=== PATIENT | male | born 1945 | race African-American/Black ===

== ENCOUNTER 2022-07-02 08:01 | Outpatient (CLI) | payer MEDICARE, SELFPAY ==
--- NOTE | ~2022-07-02 | NM_ITS ---
EXAMINATION: NM bone scan whole body DATE: 07/02/2022 11:56 INDICATION: Prostate cancer TECHNIQUE: Daily 6.7 mCi Tc-99m HDP was administered intravenously. Delayed whole-body scintigrams w ere obtained. COMPARISON: There are no relevant imaging studies at our institution. FINDINGS: Atypical focus of moderate increased uptake in the occiput suspicious for metastatic disease. Osteope nichelle defects at both knees suggesting total knee arthroplasties with normal mild linear uptake underly ing the tibial tray both medially and laterally on the left and laterally on the right. There is more prominent increased uptake underlying the medial tibial tray on the left which particularly if there is plaster chronic raises concern for loosening. Mild likely degenerative joint centered uptake at t he bilateral acromioclavicular and sternoclavicular joints and multiple joints of the bilateral hands and feet. Mild uptake at the lower cervical spine also typical location for degenerative disc diseas e. Additional small foci of mild but more suspiciously located uptake at the caudal aspect of the rig ht sacroiliac joint and in the region of the right maxilla. Mild uptake at the distal left upper arm likely related to small amount of soft tissue extravasation at the site of the left antecubital injec tion. IMPRESSION: 1. Focus of moderate increased uptake suspicious for metastatic disease at the occiput along with a c ouple additional more subtle but still suspicious small foci of uptake at the inferior right sacroili ac joint and at the right maxilla. Recommend correlation with head CT. 2. Mildly prominent linear increased uptake underlying the medial tibial tray of a right total knee a rthroplasty could be seen with a relatively recently placed arthroplasty but is otherwise concerning for loosening. Consider correlation with right knee radiographs. Reviewed, dictated and finalized at location B. TS TRAFFIC CONTROLLER IMPRESSION: 1. Focus of moderate increased uptake suspicious for metastatic disease at the occiput along with a couple additional more subtle but still suspicious small f oci of uptake at the inferior right sacroiliac joint and at the right maxilla. Recommend correlation with head CT. 2. Mildly prominent linear increased uptake underlying the medial tibial tray o f a right total knee arthroplasty could be seen with a relatively recently plac ed arthroplasty but is otherwise concerning for loosening. Consider correlation with right knee radiographs.
== END 2022-07-02 08:02 | disposition home or self-care (01) ==
PROVIDERS: PCP Family Medicine; Visit Provider Urology
DX: C61 Malignant neoplasm of prostate (principal)
CPT/HCPCS: 78306; A9503

== ENCOUNTER 2022-07-19 12:41 | Outpatient (CLI) | payer MEDICARE, SELFPAY ==
--- NOTE | ~2022-07-19 | PE_ITS ---
EXAMINATION: PET_PETPSMAST_PT DATE: 07/19/2022 15:38 INDICATION: Prostate cancer. TECHNIQUE: 9.471 mCi of piflufolastat F-18 was administered intravenously. Low dose computed tomograp hy (CT) images were acquired from the base of the brain to the proximal thighs for attenuation correc tion and anatomic localization. Automated exposure control was employed. Dose-length product (DLP) wa s 978 mGy-cm. Positron emission tomography (PET) images were acquired in the same distribution. COMPARISON: Bone scan 07/02/2022 FINDINGS: Head/neck: There are no pathologically enlarged lymph nodes. Chest: There is mild emphysema. No pleural effusion. The heart size is normal. No pericardial effusio n. There are no pathologically enlarged lymph nodes. There are two foci of increased activity in medi al right seventh rib with maximum SUV of 4.[address] correlate. There is a 14 mm nonaggre ssive lytic lesion in medial right seventh rib without increased activity, likely benign. Abdomen/pelvis/proximal thighs: The liver, spleen, gallbladder, pancreas, and adrenal glands are norm al. There are cysts in the kidneys measuring up to 2.4 cm in the right. There is severe right hydrone phrosis. There is an 8 mm stone in proximal right ureter. The prostate is moderately enlarged. There is increased activity in the prostate bilaterally, left worse than right, with maximum SUV of 20.2. T here are no dilated loops of bowel. The appendix is normal. There are no pathologically enlarged lymp h nodes. There is no free intraperitoneal fluid. There is increased activity in right L5 transverse p rocess with maximum SUV of 3.[address] correlate. There is increased activity in lumbar s pine correlating with severe spondylosis by CT. There is increased activity at the sacroiliac joints correlating with osteoarthritis by CT. IMPRESSION: 1. Mildly enlarged prostate with increased activity, consistent with primary malignancy. 2. Mildly increased activity in right 7th rib and right L5 transverse process without abnormal CT cor relate. These findings are indeterminate for malignancy. Reviewed, dictated and finalized at location A. HALMIC MEDICAL ASSISTANT IMPRESSION: 1. Mildly enlarged prostate with increased activity, consistent with primary ma lignancy. 2. Mildly increased activity in right 7th rib and right L5 transverse process w ithout abnormal CT correlate. These findings are indeterminate for malignancy.
== END 2022-07-19 12:42 | disposition home or self-care (01) ==
PROVIDERS: PCP Family Medicine; Visit Provider Urology
DX: C61 Malignant neoplasm of prostate (principal); R93.7 Abnormal findings on diagnostic imaging of other parts of musculoskeletal system; M47.816 Spondylosis without myelopathy or radiculopathy, lumbar region
CPT/HCPCS: 78815; A9595

== ENCOUNTER 2022-07-30 15:13 | Outpatient (CLI) | payer MEDICARE, SELFPAY ==
--- NOTE | ~2022-07-30 | CT_ITS ---
EXAMINATION: CT abdomen pelvis wo con DATE: 07/30/2022 15:43 INDICATION: Right ureteral stone. TECHNIQUE: Computed tomography (CT) of the abdomen and pelvis was performed without intravenous contr ast. Automated exposure control and iterative reconstruction technique were employed. The dose-length product was 874.65 mGy-cm. COMPARISON: Abdomen radiographs 07/30/2022 FINDINGS: The visualized portions of the lung bases demonstrate mild emphysema and mild atelectasis. No pleural effusion. The heart size is normal. There are coronary artery calcifications. There is a s mall pericardial effusion. The liver is normal. There are gallstones in the gallbladder, which is nor mal in size. The spleen, pancreas, and adrenal glands are normal. There are cysts in the kidneys krista uring up to 9.0 cm on the right. There is a 3 mm stone in left kidney. There is severe right hydronep hrosis and hydroureter. There is an 8 mm stone in proximal right ureter. The prostate is severely enl arged. There are no dilated loops of bowel. The appendix is normal. There are no pathologically enlar ged lymph nodes. There is no free intraperitoneal fluid. There is moderate thoracic spondylosis and s evere lumbar spondylosis. There is mild chronic anterior wedging of multiple vertebral bodies. IMPRESSION: 1. 8 mm stone in proximal right ureter with severe right hydronephrosis and hydroureter. Reviewed, dictated and finalized at location A. DSMAN IMPRESSION: 1. 8 mm stone in proximal right ureter with severe right hydronephrosis and hyd roureter.
--- NOTE | ~2022-07-30 | XR_ITS ---
XR abdomen/kub 1V 07/30/2022 15:51 Indication: Right ureteral stone Procedure: KUB Comparison: No prior studies Findings: There is a right ureteral stone at the L3 level measuring 8 mm. Bowel gas pattern is nonobs tructive. Moderate-severe lumbar spondylosis. Nonobstructive bowel gas. Impression: 1: Right proximal ureteral stone measuring 8 mm at the L3 level. Reviewed, dictated and finalized at location B. GE FISHERMAN Impression: 1: Right proximal ureteral stone measuring 8 mm at the L3 level.
== END 2022-07-30 15:14 | disposition home or self-care (01) ==
PROVIDERS: PCP Family Medicine; Visit Provider Urology
DX: N20.1 Calculus of ureter (principal)
CPT/HCPCS: 74018; 74176

== ENCOUNTER 2022-08-27 13:23 | Outpatient (CLI) | payer MEDICARE, SELFPAY ==
[2022-08-27 15:49] LABS: Hematocrit 40.2 % (42.0-52.0); Hemoglobin 12.2 g/dL (14.0-18.0)
[2022-08-27 16:00] LABS: INR 1.1; Prothrombin Time 13.6 Seconds (11.1-14.7)
[2022-08-27 16:02] LABS: Anion Gap 6 mmol/L (8-16); Blood Urea Nitrogen 24 mg/dL (9-20); Calcium 10.7 mg/dL (8.4-10.2); Carbon Dioxide 31 mmol/L (22-30); Chloride 104 mmol/L (98-107); Estimated Glomerular Filt Rate 55; Glucose 83 mg/dL (65-110); Sodium 141 mmol/L (137-145)
[2022-08-27 16:14] LABS: Potassium 3.7 mmol/L (3.4-5.0)
== END 2022-08-27 13:24 | disposition home or self-care (01) ==
PROVIDERS: Anesthesiology; PCP Family Medicine; Visit Provider Urology
DX: Z01.818 Encounter for other preprocedural examination (principal); D64.9 Anemia, unspecified; Z51.81 Encounter for therapeutic drug level monitoring; N20.1 Calculus of ureter
CPT/HCPCS: 36415; 80048; 85014; 85018; 85610; 85730; 87086

== ENCOUNTER 2022-09-03 01:47 | Day surgery (SDC) | payer MEDICARE, SELFPAY ==
[2022-08-20 13:17] VITALS: BMI 39.0
--- NOTE | 2022-08-20 13:50 | PC.NURSE ---
Report to the Outpatient Waiting Room, entrance under the green pavilion located off [facility], at time __6:00AM on date __09/03/22 . Planned Procedure Time: __7:30AM . Time changes happen often and if your time is changed the preop area will call you the afternoon before. - You and your visitor will be asked to self-screen and do not enter if you have any COVID symptoms. - Only one visitor is requested with a max of two and NO children visitors are allowed at this time. - The patient visitor may be requested to leave or wait in car when not with patient due to distancing restrictions. - A mask is optional within the hospital at this time. Patients may have clear liquids (water, carbonated beverages, clear teas, apple juice) until 3 hours prior to surgery with a maximum of 20 ounces. - No food from midnight until time of surgery Take the following medications with a SIP of water the morning of surgery: ___VERAPAMIL DO NOT STOP ANY OF YOUR OTHER PRESCRIPTION MEDICATIONS PRIOR TO SURGERY ?EXCEPT THE FOLLOWING Medications to discontinue per physician ___HOLD ASPIRIN 7 DAYS PRE-OP Date to take last dose___08/27/22 Please no make-up, nail georgian, hairspray, perfume, deodorant, or body powder the day of surgery. No jewelry (including any body piercings) or valuables the day of surgery, leave them at home. Please take a shower or bath the night before, or the morning of, surgery with an antibacterial soap. Wear comfortable, loose fitting clothing. Children are encouraged to wear pajamas. - Jewelry must be removed prior to entering the operating room. Rings and piercings that are not removed may be cut off. - The hospital will not accept responsibility for valuables. - Please leave all valuables, including medications, at home the day of surgery. If you are going home after surgery, a licensed food mobile driver must drive you home. - NO public transportation without another adult if you receive anesthesia. - We recommend that an adult stay with you for 24 hours following discharge. - We also recommend that you do not drive, make important decision, drink alcoholic beverages, or take any drugs that were not prescribed by your health care provider for at least 24 hours after your discharge time.. Follow any additional instructions given to you from your surgeon. If you or anyone in your household have experienced Covid symptoms in the past week, please notify your surgeon or the nurse liaison at the phone number below for possible testing. Telephone instructions given to ___PATIENT and asked if any additional questions and then verbalized understanding. Patient advised to call surgeon office or pre surgery nurse liaison [phone] if any additional questions.
[2022-09-03] VITALS (8 sets, daily range): BP systolic 124–160; BP diastolic 74–104; PULSE 64–72; RESP 14–20; TEMP 36.1–36.5; O2SAT 99–100
--- NOTE | ~2022-09-03 | CT_ITS ---
Non-contrast CT scan of the Abdomen and Pelvis Clinical indication: Right kidney stone Technique: 2.5 mm axial scans were obtained through the abdomen and pelvis without intravenous or or al contrast. Dose reduction technique was used on this scan by utilizing automated exposure control a nd iterative reconstruction technique. The dose-length product (DLP) was 778.79 mGy-cm. COMPARISON: 07/30/2022 Findings: Images through the lung bases reveal no abnormalities. There is a 6 mm stone versus 2 adjacent stones in the proximal right ureter, resulting in mild to mod erate right hydroureteronephrosis. Bilateral renal cysts are present. No left ureteral stone or left hydronephrosis. The liver, spleen, and adrenals appear normal. Probable tiny gallstones present. Probable lipoma with in the uncinate process of the pancreas. There are atherosclerotic calcifications of the aorta. There is no evidence of bowel obstruction. Images through the pelvis were performed. There is no evidence of ascites or lymphadenopathy. Urinary bladder unremarkable. Prostate gland is enlarged. There is focal area of amorphous hyperdensity cent rally in the prostate gland, or possibly in the urinary bladder inferiorly, measuring 12 mm in diamet er. Impression: 6 mm stone versus 2 adjacent stones in the proximal right ureter with mild to moderate hydroureterone phrosis. This is unchanged since 07/30/2022. 12 mm amorphous hyperdensity in the midline either in the very inferior bladder or within the prostat e gland. Diagnostic considerations could include urinary bladder or urethral stone, versus developing prostatic calcification, also unchanged since 07/30/2022. Cholelithiasis. Reviewed, dictated and finalized at [facility]. Impression: 6 mm stone versus 2 adjacent stones in the proximal right ureter with mild to m oderate hydroureteronephrosis. This is unchanged since 07/30/2022. 12 mm amorphous hyperdensity in the midline either in the very inferior bladder or within the prostate gland. Diagnostic considerations could include urinary bladder or urethral stone, versus developing prostatic calcification, also unch anged since 07/30/2022. Cholelithiasis.
--- NOTE | ~2022-09-03 | XR_ITS ---
Supine and upright views of the abdomen Clinical history: Lithotripsy COMPARISON: 07/30/2022 Findings: Bowel gas pattern is nonspecific. No evidence for obstruction or free air. No abnormal mass lesion or calcification is seen. Degenerative spondylosis of lumbar spine noted. Impression: No significant abnormality is seen. Reviewed, dictated and finalized at [facility]. Impression: No significant abnormality is seen.
[2022-09-03] MEDS: LACTATED RINGERS 1,000 ML 30 ML IV CONT (06:48)
[2022-09-03 07:58] LABS: Partial Thromboplastin Time 38.4 SECONDS (22.3-36.8)
--- NOTE | 2022-09-03 08:44 | WPDHPUPDATE1 ---
History and Physical Update Update Date/Time: 09/03/22 08:44 History and Physical has been reviewed, including an updated exam of the patient. There are NO changes in the patient's condition. Risks, benefits, and alternatives have been discussed and questions answered. Patient agrees to proceed with procedure. Proceed with eswl of right ureteral calculus
--- NOTE | 2022-09-03 08:46 | WPDANESEPPF ---
Anes - Initial Pre Proc Eval Procedure: Operation Date: 09/03/22 07:30 Proposed Procedures p Right Extracorporeal Shock Wave Lithotripsy - Percy Rao MD Date/Time: 09/03/22 08:46 Surgeon: Percy Rao MD Pre Op Diagnosis: right ureteral stones Patient Data Age: 77 Gender: M Height: 1.8 m Weight: 127.2 kg Last Vital Signs Temp 97.7 F 09/03/22 06:55 Pulse 67 09/03/22 06:55 Resp 20 09/03/22 06:55 BP 160/86 H 09/03/22 06:55 Pulse Ox 100 09/03/22 06:55 O2 Del Method Room Air 09/03/22 06:55 Allergies Allergy/AdvReac Type Severity Reaction Status Date / Time No Known Allergies Allergy Unverified 09/03/22 06:30 Home Medications Medication Instructions Recorded Confirmed Type Zyrtec 10 mg tablet (cetirizine) 10 mg PO DAILY PRN allergy 06/22/22 08/20/22 Rx symptoms #90 tabs acetaminophen 650 mg 1,300 mg PO QAM 08/20/22 08/20/22 History tablet,extended release aspirin 81 mg capsule,delayed 81 mg PO DAILY 08/20/22 09/03/22 History release atorvastatin 20 mg tablet 20 mg PO DAILY 08/20/22 08/20/22 History lancets 33 gauge (TRUEplus Lancets) #200 ea 08/31/22 Rx hydrochlorothiazide 25 mg tablet See Rx Instructions .Route 09/02/22 Rx .COMPLEX #30 tabs lisinopril 10 mg tablet See Rx Instructions .Route 09/02/22 Rx .COMPLEX #30 tabs verapamil 240 mg tablet,extended See Rx Instructions .Route 09/02/22 Rx release .COMPLEX #30 tabs Laboratory Tests 09/03/22 06:44 APTT 38.4 SECONDS H SECONDS (22.3-36.8) Patient hx anesthesia problems: none Family hx anesthesia problems: none Results Review: All pre-operative results and documents have been reviewed as part of the pre-operative evaluation. [facility] Past Medical History Medical History Benign essential HTN BPH (benign prostatic hyperplasia) Chronic constipation Hyperlipidemia due to dietary fat intake Tobacco abuse Surgical History Surgical History S/P TURP Family History Family History Other Diabetes mellitus Hypertension Social History Social History (Updated 06/22/22 @ 15:53 by Carolyn Reyes) Social History: Smoking packs per day: 3 Smoking cigarettes per day: 60.0 Years smoked: 25 Smoking pack-years: 75.00 Smoking status: Former smoker Tobacco type: cigarettes Second hand tobacco smoke exposure: No Smoking end date: 12/04/76 Alcohol intake: never Substance use: never Substance use type: does not use Living arrangements: alone Occupation/Education: occupation Gender identity (if verbalized by the patient): Male Sexual Orientation (if Verbalized by the Patient): Straight or Heterosexual Spiritual care concerns: No Anes - Eval Final PreProcedure Day of Procedure 09/03/22 08:46 Patient weight: morbidly obese Heart: regular rate and rhythm Lungs: clear to auscultation Airway: Mallampati scale class II Neurological: alert and oriented Last oral intake: >/= 8 hours ASA classification: III Emergent: no Anesthetic plan: proceed Anesthesia type and monitoring: general LMA and standard monitoring Results Review: All pre-operative results and documents have been reviewed as part of the pre-operative evaluation. Informed Consent: The patient's anesthetic plan and its attendant risks and benefits were discussed with the patient/family/POA. Questions were solicited and answers provided to the satisfaction of the patient/family/POA.
[2022-09-03] MEDS: ceFAZolin 3 GM/D5W 100 ML 100 ML IVPB (08:53)
--- NOTE | 2022-09-03 09:37 | W.PM.PROC2 ---
Procedure Note - Detailed Date of Procedure 09/03/22 Pre-op Diagnosis right ureteral stones Post-op Diagnosis Same Procedure Performed Lithotripsy of right ureteral calculus 8 mm Surgeon Percy Rao MD Anesthesia General Description of Procedure Patient is taken the operative suite correctly identified. Once anesthesia was obtained the stone was localized in both planes. Three thousand shocks were given the stone. Patient tolerated procedure well without any complications and was taken recovery stable condition. He will follow-up in 7-10 days with KUB. Please send a copy of op note by office Estimated Blood Loss 0 Drains No Packing No Pathology None sent Complications No immediate complications Condition Stable Disposition PACU
[2022-09-03 09:49] LABS: Glucose Point of Care 98 mg/dl (65-105)
== END 2022-09-03 11:23 | disposition home or self-care (01) ==
PROVIDERS: PCP Family Medicine; Visit Provider Urology
PROC: (CPT 50590; principal; 2022-09-03 07:30)
DX: N20.1 Calculus of ureter (principal); I10 Essential (primary) hypertension; N40.0 Benign prostatic hyperplasia without lower urinary tract symptoms; E78.5 Hyperlipidemia, unspecified; K59.09 Other constipation; Z87.891 Personal history of nicotine dependence; Z79.899 Other long term (current) drug therapy; E66.01 Morbid (severe) obesity due to excess calories; Z68.39 Body mass index [BMI] 39.0-39.9, adult; Z79.82 Long term (current) use of aspirin
CPT/HCPCS: 50590; 36415; 74018; 74176; 80048; 82948; 85014; 85018; 85610; 85730; 87086; J0690; J1100; J2405; J2704; J7120

== ENCOUNTER 2022-09-22 13:52 | Outpatient (CLI) | payer MEDICARE, SELFPAY ==
--- NOTE | ~2022-09-22 | XR_ITS ---
XR abdomen/kub 1V 09/22/2022 14:14 Indication: Right ureteral stone Procedure: KUB Comparison: 09/03/2022 Findings: Bowel gas pattern is nonobstructive. Moderate colonic fecal loading. Severe lumbar spondylo sis. No abnormal calcifications. Impression: 1: No acute abdominal abnormality. Reviewed, dictated and finalized at location A. Impression: 1: No acute abdominal abnormality.
== END 2022-09-22 13:53 | disposition home or self-care (01) ==
PROVIDERS: PCP Family Medicine; Visit Provider Urology
DX: N20.1 Calculus of ureter (principal)
CPT/HCPCS: 74018

== ENCOUNTER 2022-10-15 08:22 | Outpatient (CLI) | payer MEDICARE, SELFPAY ==
--- NOTE | ~2022-10-15 | CT_ITS ---
Non-contrast CT scan of the Abdomen and Pelvis Clinical indication: Right ureteral stone Technique: 2.5 mm axial scans were obtained through the abdomen and pelvis without intravenous or or al contrast. Dose reduction technique was used on this scan by utilizing automated exposure control a nd iterative reconstruction technique. The dose-length product (DLP) was 921.02 mGy-cm. COMPARISON: 09/03/2022 Findings: Images through the lung bases reveal no abnormalities. Stable right mid ureteral stone or adjacent stones, with associated severe right hydronephrosis. Bila teral renal cysts are again present. No left renal or left ureteral stones seen. No left hydronephros is. The liver, spleen, pancreas, gallbladder, and adrenals appear normal. There is no aortic aneurysm. There is no evidence of bowel obstruction. Images through the pelvis were performed. There is no evidence of ascites or lymphadenopathy. Urinary bladder unremarkable. Stable focal hyperdensity in the prostate gland centrally/inferiorly. Impression: Stable right mid ureteral stone or adjacent stones with associated moderate to severe right hydroneph rosis. Multiple bilateral renal cysts. Reviewed, dictated and finalized at [facility]. Impression: Stable right mid ureteral stone or adjacent stones with associated moderate to severe right hydronephrosis. Multiple bilateral renal cysts.
--- NOTE | ~2022-10-15 | XR_ITS ---
Supine and upright views of the abdomen Clinical history: Right ureteral stone, prostate cancer COMPARISON: 09/22/2022 Findings: Bowel gas pattern is nonspecific. No evidence for obstruction or free air. No abnormal mass lesion or calcification is seen. Osseous structures are intact. Impression: No significant abnormality is seen. Reviewed, dictated and finalized at [facility]. Impression: No significant abnormality is seen.
== END 2022-10-15 08:23 | disposition home or self-care (01) ==
PROVIDERS: PCP Family Medicine; Visit Provider Urology
DX: N13.2 Hydronephrosis with renal and ureteral calculous obstruction (principal); N28.1 Cyst of kidney, acquired
CPT/HCPCS: 74018; 74176

== ENCOUNTER 2022-10-22 09:10 | Outpatient (CLI) | payer MEDICARE, SELFPAY ==
--- NOTE | 2022-10-22 09:36 | ECG_ITS ---
Measurements Intervals [place] Rate: 54 P: 19 NM: 200 QRS: -13 QRSD: 109 T: 84 QT: 417 QTc: 397 Interpretive Statements SINUS BRADYCARDIA BORDERLINE AV CONDUCTION DELAY DELAYED PRECORDIAL R/S TRANSITION LEFT VENTRICULAR HYPERTROPHY WITH ST-T CHANGE BORDERLINE ECG NO PREVIOUS ECG AVAILABLE FOR COMPARISON Electronically Signed On 10-22-2022 11:24:31 CDT by Jevon Lau D.O.
== END 2022-10-22 09:11 | disposition home or self-care (01) ==
PROVIDERS: PCP Family Medicine; Visit Provider Urology
DX: N20.1 Calculus of ureter (principal); I10 Essential (primary) hypertension; Z01.818 Encounter for other preprocedural examination; I45.9 Conduction disorder, unspecified
CPT/HCPCS: 87086; 93005

== ENCOUNTER 2022-10-26 00:26 | Day surgery (SDC) | payer MEDICARE, SELFPAY ==
[2022-10-21 13:33] VITALS: BMI 38.8
--- NOTE | 2022-10-21 13:55 | PC.NURSE ---
Report to the Outpatient Waiting Room, entrance under the green pavilion located off [facility], at time _9:30AM on date __10/26/22 . Planned Procedure Time: __11:30AM . Time changes happen often and if your time is changed the preop area will call you the afternoon before. - You and your visitor will be asked to self-screen and do not enter if you have any COVID symptoms. - A mask is optional within the hospital at this time. Patients may have clear liquids (water, carbonated beverages, clear teas, apple juice) until 3 hours prior to surgery with a maximum of 20 ounces. - No food from midnight until time of surgery Take the following medications with a SIP of water the morning of surgery: __VERAPAMIL DO NOT STOP ANY OF YOUR OTHER PRESCRIPTION MEDICATIONS PRIOR TO SURGERY ?EXCEPT THE FOLLOWING Medications to discontinue per physician ____HOLD ASPIRIN STARTING NOW Date to take last dose____10/21/22 Please no make-up, nail ukrainian, hairspray, perfume, deodorant, or body powder the day of surgery. No jewelry (including any body piercings) or valuables the day of surgery, leave them at home. Please take a shower or bath the night before, or the morning of, surgery with an antibacterial soap. Wear comfortable, loose fitting clothing. Children are encouraged to wear pajamas. - Jewelry must be removed prior to entering the operating room. Rings and piercings that are not removed may be cut off. - The hospital will not accept responsibility for valuables. - Please leave all valuables, including medications, at home the day of surgery. If you are going home after surgery, a licensed box truck driver must drive you home. - NO public transportation without another adult if you receive anesthesia. - We recommend that an adult stay with you for 24 hours following discharge. - We also recommend that you do not drive, make important decision, drink alcoholic beverages, or take any drugs that were not prescribed by your health care provider for at least 24 hours after your discharge time. Follow any additional instructions given to you from your surgeon. If you or anyone in your household have experienced Covid symptoms in the past week, please notify your surgeon or the nurse liaison at the phone number below for possible testing. Telephone instructions given to _PATIENT & DAUGHTER(ELIANE)___and asked if any additional questions and then verbalized understanding. Patient advised to call surgeon office or pre surgery nurse liaison [phone] if any additional questions.
[2022-10-26] VITALS (7 sets, daily range): BP systolic 135–150; BP diastolic 82–92; PULSE 46–63; RESP 14–18; TEMP 36.2–36.4; O2SAT 97–100
--- NOTE | ~2022-10-26 | XR_ITS ---
EXAMINATION: XR retrograde pyelo w/stent RT DATE: 10/26/2022 10:38 INDICATION: Right internal ureteral stent placement TECHNIQUE: Fluoroscopic images from a right internal ureteral stent placement are submitted for yovany patricio 26 seconds of fluoroscopy time. 3 fluoroscopic images FINDINGS: There is a right double-J internal ureteral stent projecting in expected position, with proximal [place] loop at the level of the renal pelvis. The distal coil is not visualized. IMPRESSION: 1. Right internal ureteral stent placement. Please refer to real-time procedural findings for cornelia ls. Reviewed, dictated and finalized at location L. IMPRESSION: 1. Right internal ureteral stent placement. Please refer to real-time procedu ral findings for details.
[2022-10-26] MEDS: LACTATED RINGERS 1,000 ML 30 ML IV CONT (09:15)
--- NOTE | 2022-10-26 09:22 | WPDANESEPPF ---
Anes - Initial Pre Proc Eval Procedure: Operation Date: 10/26/22 11:00 Proposed Procedures p Cystoscopy, Right Ureteroscopy, Right Retrograde Pyelogram, Right Stone Extraction, Possible Right Stent Placement, Possible Holmium Laser - Percy Rao MD Date/Time: 10/26/22 09:22 Surgeon: Percy Rao MD Pre Op Diagnosis: right ureteral stone Patient Data Age: 77 Gender: M Height: 1.82 m Weight: 127.2 kg Last Vital Signs Temp 36.2 C L 10/26/22 08:57 Pulse 63 10/26/22 08:57 Resp 18 10/26/22 08:57 BP 145/91 H 10/26/22 08:57 Pulse Ox 100 10/26/22 08:57 O2 Del Method Room Air 10/26/22 08:57 Allergies Allergy/AdvReac Type Severity Reaction Status Date / Time No Known Allergies Allergy Unverified 10/21/22 13:27 Home Medications Medication Instructions Recorded Confirmed Type Zyrtec 10 mg tablet (cetirizine) 10 mg PO DAILY PRN allergy 06/22/22 10/21/22 Rx symptoms #90 tabs acetaminophen 650 mg 1,300 mg PO BID PRN Pain 08/20/22 10/21/22 History tablet,extended release aspirin 81 mg capsule,delayed 81 mg PO DAILY 08/20/22 10/21/22 History release atorvastatin 20 mg tablet 20 mg PO DAILY 08/20/22 10/21/22 History lancets 33 gauge (TRUEplus Lancets) #200 ea 08/31/22 09/21/22 Rx blood glucose control, low (True #1 ea 09/13/22 09/21/22 Rx Metrix Level 1 solution) hydrochlorothiazide 25 mg tablet 25 mg PO QAM 10/21/22 10/21/22 History lisinopril 10 mg tablet 10 mg PO QAM 10/21/22 10/21/22 History verapamil 240 mg tablet,extended 240 mg PO QAM 10/21/22 10/21/22 History release Laboratory Tests 10/26/22 09:08 APTT Pending Patient hx anesthesia problems: none Family hx anesthesia problems: none Results Review: All pre-operative results and documents have been reviewed as part of the pre-operative evaluation. [facility] Past Medical History Medical History (Reviewed 10/26/22 @ 09: by Abhi Chris MD) Abnormal EKG Abnormal electrocardiogram [ECG] [EKG] Benign essential HTN BPH (benign prostatic hyperplasia) Cancer determined by prostate biopsy Chronic constipation Elevated PSA Hyperlipidemia due to dietary fat intake Screening for prostate cancer Tobacco abuse Surgical History Surgical History (Reviewed 10/26/22 @ 09: by Abhi Chris MD) History of prostate biopsy S/P TURP Family History Family History (Reviewed 10/26/22 @ 09: by Abhi Chris MD) Other Diabetes mellitus Hypertension Social History Social History (Reviewed 10/26/22 @ 09: by Abhi Chris MD) Social History: Smoking packs per day: 3 Smoking cigarettes per day: 60.0 Years smoked: 5 Smoking pack-years: 15.00 Smoking status: Former smoker Tobacco type: cigarettes Second hand tobacco smoke exposure: No Smoking end date: 12/04/76 Alcohol intake: never Substance use: never Substance use type: does not use Lack of Transportation: No Lack of Food: Never True Current Housing: I Have Housing Concerned About Future Housing: No Difficulty Paying Gas/Electric Bills: No Difficulty Paying for Meds: No Currently Unemployed: No Education: Decline to Answer Difficulty w/ Childcare or Family Care: No Living arrangements: alone Occupation/Education: occupation Gender identity (if verbalized by the patient): Male Sexual Orientation (if Verbalized by the Patient): Straight or Heterosexual Spiritual care concerns: No Anes - Eval Final PreProcedure Day of Procedure 10/26/22 09:22 Patient weight: obese Heart: regular rate and rhythm Lungs: clear to auscultation Airway: Mallampati scale class II Neurological: alert and oriented Last oral intake: >/= 8 hours ASA classification: III Emergent: no Anesthetic plan: proceed Anesthesia type and monitoring: general LMA and standard monitoring Results Review: All pre-operative results and documents have been reviewed as part of the pre-
--- NOTE | 2022-10-26 09:38 | WPDHPUPDATE1 ---
History and Physical Update Update Date/Time: 10/26/22 09:38 History and Physical has been reviewed, including an updated exam of the patient. There are NO changes in the patient's condition. Risks, benefits, and alternatives have been discussed and questions answered. Patient agrees to proceed with procedure. Proceed with cysto, right retrograde pyelogram, right ureteroscopy with possible holmium laser, stone extraction, stent placement
[2022-10-26 09:40] LABS: Partial Thromboplastin Time 33.7 SECONDS (22.3-36.8)
[2022-10-26] MEDS: ceFAZolin 3 GM/D5W 100 ML 100 ML IVPB (09:46)
[2022-10-26] MEDS: LIDOCAINE HCL 2% GEL UROJET 10 ML PKG MUCOUS MEM (10:31)
--- NOTE | 2022-10-26 10:31 | P.OP_ITS ---
Procedure Note - Detailed Date of Procedure 10/26/22 Pre-op Diagnosis right ureteral stone Post-op Diagnosis Same Procedure Performed Cystoscopy, right retrograde pyelogram, right ureteroscopy with holmium laser, stone extraction, right ureteral stent placement 4.8 Albanian contour Surgeon Percy Rao MD Anesthesia General Description of Procedure Patient is taken to the operative suite correctly identified. Once anesthesia was obtained was placed in dorsal lithotomy position and prepped and draped usual sterile fashion. Twenty-two Albanian scope was inserted in the bladder. There were no tumors noted. The right ureteral orifice was cannulated with a guidewire. Ureteral access sheath was then placed. Mini flexible ureteral scope was placed. The stone was noted to be impacted in the proximal ureter. Using a 200 micron fiber we lasered the stone into multiple pieces. Many of these simply passed and were too small to retrieve. Some of the larger pieces were sent for analysis. Reinspection reveals some friable mucosa where the stone was impacted. Pyelogram was performed to confirm placement of the stent. 4.8 Albanian contour stent was then placed with proximal end coiled in the renal pelvis and the distal in the bladder. Bladder was drained. 2% viscous lidocaine was inserted urethra patient is taken recovery stable condition. Will plan to leave the stent in for 2 weeks prior to its removal. This completes dictation. Please send a copy to my office. Estimated Blood Loss 0 Drains Yes Packing No Pathology Yes Complications No immediate complications Condition Stable Disposition PACU
[2022-10-26] MEDS: oxyCODONE HCL (*CRX) 5 MG TAB IR PO (11:26)
--- NOTE | 2022-10-26 12:05 | SUR.PHASEII ---
Patient IV removed, and dressed. Patient vital signs stable awaiting daughter to product picker.
== END 2022-10-26 12:36 | disposition home or self-care (01) ==
PROVIDERS: Anesthesiology; PCP Family Medicine; Visit Provider Urology
PROC: (CPT 52352; principal; 2022-10-26 11:00)
DX: N20.1 Calculus of ureter (principal); Z85.46 Personal history of malignant neoplasm of prostate
CPT/HCPCS: 52356; 36415; 74420; 82365; 85730; 87086; 88300; 93005; A9270; C1758; C1769; C1894; C2617; J0690; J2405; J2704; J3010; J7120

== ENCOUNTER 2023-07-25 09:53 | Outpatient (CLI) | payer MEDICARE, SELFPAY ==
--- NOTE | ~2023-07-25 | XR_ITS ---
Clinical Indication: Weakness PA and lateral views of the chest: Comparison: None Findings: Right middle lobe pneumonia present. Left lung clear.. Cardiomediastinal silhouette is wit hin normal limits. Bones and soft tissues are unremarkable. Impression: Right middle lobe pneumonia. Reviewed, dictated and finalized at [facility]. E ERECTOR Impression: Right middle lobe pneumonia.
--- NOTE | ~2023-07-25 | XR_ITS ---
Supine and upright views of the abdomen Clinical history: Constipation Findings: Bowel gas pattern is nonspecific. No evidence for obstruction or free air. No abnormal mass lesion or calcification is seen. There is degenerative spondylosis throughout the lumbar spine. Impression: No significant abnormality is seen. Reviewed, dictated and finalized at [facility]. . PRICING ANALYST Impression: No significant abnormality is seen.
[2023-07-25 11:20] LABS: Basophils Percent Auto 0.1 % (0.2-1.2); Hematocrit 35.3 % (42.0-52.0); Hemoglobin 10.8 g/dL (14.0-18.0); Immature Granulocyte Absolute 0.29 K/mm3 (0.00-0.031); Immature Granulocyte Percent A 2.1 % (0-0.5); Lymphocytes Absolute Auto 0.74 K/mm3 (0.9-3.2); Lymphocytes Percent Auto 5.4 % (18.3-44.2); Mean Corpuscular HGB Conc 30.6 g/dl (32-36); Mean Corpuscular Hemoglobin 24.1 pg (26-34); Mean Corpuscular Volume 78.8 fl (80-100); Mean Platelet Volume 10.1 fl (7.4-10.4); Monocytes Absolute Auto 0.8 K/mm3 (0.1-0.6); Monocytes Percent Auto 5.8 % (2.6-8.5); Neutrophils Absolute Auto 11.9 K/mm3 (1.3-6.7); Neutrophils Percent Auto 86.6 % (45.5-73.1); Platelet Count Result 228 k/mm3 (150-375); Red Blood Count 4.48 M/mm3 (4.6-6.20); Red Cell Distribution Width 13.6 % (11.5-14.5); White Blood Count 13.7 K/mm3 (4.5-10.0)
[2023-07-25 11:38] LABS: Alanine Aminotransferase 33 U/L (6-50); Albumin Level 4.2 g/dL (3.5-5.1); Alkaline Phosphatase 105 U/L (38-126); Anion Gap 13 mmol/L (8-16); Aspartate Amino Transferase 33 U/L (17-59); Bilirubin,Total 1.6 mg/dL (0.2-1.3); Blood Urea Nitrogen 32 mg/dL (9-20); Calcium 11.4 mg/dL (8.4-10.2); Carbon Dioxide 22 mmol/L (22-30); Chloride 98 mmol/L (98-107); Estimated Glomerular Filt Rate 39; Glucose 198 mg/dL (65-110); Potassium 2.6 mmol/L (3.4-5.0); Sodium 133 mmol/L (137-145)
[2023-07-28 09:24] LABS: PSA, Free 0.09 ng/mL; PSA, Total <0.1 ng/mL (<=4.0)
== END 2023-07-25 09:54 | disposition home or self-care (01) ==
PROVIDERS: PCP Family Medicine; Visit Provider Family Medicine
DX: E03.9 Hypothyroidism, unspecified (principal); C61 Malignant neoplasm of prostate; C79.51 Secondary malignant neoplasm of bone; R97.20 Elevated prostate specific antigen [PSA]; I10 Essential (primary) hypertension; K59.09 Other constipation
CPT/HCPCS: 36415; 71046; 74018; 80053; 84153; 84154; 84443; 85025

== ENCOUNTER 2023-12-30 14:15 | Outpatient (CLI) | payer MEDICARE, SELFPAY ==
--- NOTE | ~2023-12-30 | DEXA_ITS ---
Bone Density Report Name: LYNN ÁLVAREZ Age: 78 Sex: Male Ethnicity: White Date of : 1945 Indication: screening for osteoporosis; rheumatoid arthritis; Referring Provider: NILO GODOY Study: Bone densitometry was performed. Exam Date: December 30, 2023 Accession number: [id number] Bone Density: Region BMD T-score Z-score Classification AP Spine(L1-L4) 1.592 4.6 5.7 Normal Femoral Neck (Left) 0.808 -0.9 0.6 Normal Total Hip (Left) 1.115 0.5 1.5 Normal Femoral Neck (Right) 0.838 -0.7 0.8 Normal Total Hip (Right) 1.105 0.5 1.5 Normal Total Hip Mean 1.110 0.5 1.5 Normal World Health Organization criteria for BMD impression classify patients as: Normal (T-score at or above -1.0), Osteopenia (T-score between -1.0 and -2.5), or Osteoporosis (T-score at or below -2.5). 10-year Fracture Risk: FRAX not reported because: All T-scores for Spine Total, Hip Total, Femoral Neck at or above -1.0 Clinical Information Provided by Patient: Has rheumatoid arthritis Has used the following medications: Calcium Patient maximum height was 71 No regular weight bearing exercise Drinks caffeinated beverages Impression: The patient has normal bone mass. Discussion: BONE DENSITY IS ABOVE THE MINIMUM DESIRABLE LEVEL AT ALL SKELETAL SITES TESTED. This patient?s bone mineral density is above the minimum desirable level (T-score -1.0 or better) at all sites measured. The patient should follow a healthful lifestyle (good nutrition with adequate calcium and vitamin D, and appropriate weight-bearing exercise). Follow-Up: Consider repeating this study in 5 years or sooner if there is some new clinical indication. Reported by: CHAPARRO on 12/30/2023 2:52:00 PM. Reviewed, dictated and finalized at location AFanny BRUNO
== END 2023-12-30 14:16 | disposition home or self-care (01) ==
PROVIDERS: PCP Family Medicine; Visit Provider Nurse Practitioner
DX: Z13.820 Encounter for screening for osteoporosis (principal); Z79.818 Long term (current) use of other agents affecting estrogen receptors and estrogen levels
CPT/HCPCS: 77080

== ENCOUNTER 2024-01-10 08:36 | Outpatient (CLI) | payer MEDICARE, SELFPAY ==
--- NOTE | ~2024-01-10 | XR_ITS ---
Clinical Indication: Shortness of breath PA and lateral views of the chest: Comparison: 07/25/2023 Findings: The lungs are clear, without evidence of focal consolidation or pleural effusion. Cardiome diastinal silhouette is within normal limits. Bones and soft tissues are unremarkable. Impression: Normal chest. Previous noted right middle lobe pneumonia is resolved. Reviewed, dictated and finalized at location . Impression: Normal chest. Previous noted right middle lobe pneumonia is resolved.
== END 2024-01-10 08:37 ==
PROVIDERS: PCP Physician Assistant; Visit Provider Physician Assistant
DX: R06.02 Shortness of breath (principal)
CPT/HCPCS: 71046

== ENCOUNTER 2024-03-08 13:17 | Emergency (ER) | payer MEDICARE, SELFPAY ==
--- NOTE | ~2024-03-08 | XR_ITS ---
XR chest 2V Ordering provider: Maritza Blackmon MD History: 78 years Male with . cough, eval for PNA . Comparison: January 10, 2024 FINDINGS: MEDIASTINUM: The cardiac silhouette is not enlarged. LUNGS: No infiltrates, effusions or pneumothorax. OTHER: No free air under the diaphragm. Degenerative changes of the spine. IMPRESSION: No acute cardiopulmonary pathology. Reviewed, dictated and finalized at location A.
[2024-03-08 13:19] VITALS: BP 150/111; PULSE 81; RESP 16; TEMP 36.1; O2SAT 98
[2024-03-08 14:15] VITALS: O2SAT 98
[2024-03-08 15:16] LABS: Influenza A QL RT-PCR Negative (Negative); Influenza B QL RT-PCR Negative (Negative); RSV RNA, RT-PCR Negative (Negative); SARS-CoV-2 RNA PCR Negative (Negative)
--- NOTE | 2024-03-08 15:56 | ED.URI ---
HPI - URI/Sore Throat General Chief Complaint: Upper Respiratory Infection Stated Complaint: cough Time Seen by Provider: 03/08/24 14:19 History of Present Illness HPI Narrative: 78-year-old male presenting with cough. States that for the last week he has had a cough and nasal congestion. States he thinks he has a cold. His wanted him to come get checked out. He denies chest pain or shortness of breath. No further complaints. Related Data Home Medications Medication Instructions Recorded Confirmed acetaminophen 650 mg 1,300 mg PO BID PRN Pain 08/20/22 11/01/23 tablet,extended release aspirin 81 mg capsule,delayed 81 mg PO DAILY 08/20/22 11/01/23 release Allergies Allergy/AdvReac Type Severity Reaction Status Date / Time No Known Allergies Allergy Unverified 01/10/24 07:40 Review of Systems Review of Systems: All systems reviewed & are unremarkable except as noted in HPI and below PMFSH Past Medical History Medical History Abnormal EKG Abnormal electrocardiogram [ECG] [EKG] Benign essential HTN BPH (benign prostatic hyperplasia) Cancer determined by prostate biopsy Chronic constipation Elevated PSA Hyperlipidemia due to dietary fat intake Screening for prostate cancer Tobacco abuse Surgical History Surgical History History of prostate biopsy S/P TURP Family History Family History Other Diabetes mellitus Hypertension Social History Social History Social History: Smoking packs per day: 3 Smoking cigarettes per day: 60.0 Years smoked: 5 Smoking pack-years: 15.00 Smoking status: Former smoker Tobacco type: cigarettes Second hand tobacco smoke exposure: No Smoking end date: 12/04/76 Alcohol intake: never Substance use: never Substance use type: does not use Do You Feel Safe in your Home?: Yes Lack of Transportation: No Lack of Food: Never True Current Housing: I Have Housing Concerned About Future Housing: No Difficulty Paying Gas/Electric Bills: No Difficulty Paying for Meds: No Currently Unemployed: No Education: Decline to Answer Difficulty w/ Childcare or Family Care: No Living arrangements: alone Occupation/Education: occupation Gender identity (if verbalized by the patient): Male Sexual Orientation (if Verbalized by the Patient): Straight or Heterosexual Spiritual care concerns: No Exam Narrative: GENERAL: Well-appearing, in no acute distress, pleasant cooperative HEAD: Normocephalic, atraumatic. EYES: PERRLA and EOMI. ENT: + nasal congestion NECK: Supple. CHEST: Clear to auscultation. No respiratory distress. HEART: Regular rate and rhythm EXTREMITIES: Normal range of motion. SKIN: Warm, dry, no rash. NEURO: No focal deficits. Alert and oriented x3. PSYCH: Normal mood and affect. Course Vital Signs Vital signs: Vital Signs Temperature 96.9 F L 03/08/24 13:19 Pulse Rate 81 03/08/24 13:19 Respiratory Rate 16 03/08/24 13:19 Blood Pressure 150/111 H 03/08/24 13:19 Pulse Oximetry 98 03/08/24 13:19 Oxygen Delivery Room Air 03/08/24 13:19 Temperature 96.9 F L 03/08/24 13:19 Pulse Rate 81 03/08/24 13:19 Respiratory Rate 16 03/08/24 13:19 Blood Pressure 150/111 H 03/08/24 13:19 Pulse Oximetry 98 03/08/24 14:15 Oxygen Delivery Room Air 03/08/24 14:15 MDM - URI/Sore Throat MDM Narrative Medical decision making narrative: 78-year-old male presenting with cough, nasal congestion. Vitals are stable. Patient is negative for COVID, influenza, RSV. Chest x-ray without acute abnormalities. Patient is safe for outpatient management. Will send in for Geraldo Sage. Advised close PCP follow-up. Appropriate return precautions
[2024-03-08 17:00] VITALS: BP 179/97; PULSE 71; RESP 18; TEMP 36.6; O2SAT 100
== END 2024-03-08 17:00 | disposition home or self-care (01) ==
PROVIDERS: Emergency Medicine; Emergency Provider Emergency Medicine; PCP Family Medicine
DX: J06.9 Acute upper respiratory infection, unspecified (principal); Z20.822 Contact with and (suspected) exposure to COVID-19; I10 Essential (primary) hypertension; E78.5 Hyperlipidemia, unspecified; N40.0 Benign prostatic hyperplasia without lower urinary tract symptoms; Z87.891 Personal history of nicotine dependence; Z85.46 Personal history of malignant neoplasm of prostate; Z90.79 Acquired absence of other genital organ(s); Z79.899 Other long term (current) drug therapy; Z79.82 Long term (current) use of aspirin
CPT/HCPCS: 71046; 87637; 99283

== ENCOUNTER 2024-10-18 10:59 | Outpatient (CLI) | payer MEDICARE, SELFPAY ==
--- NOTE | ~2024-10-18 | XR_ITS ---
XR abdomen/kub 1V 10/18/2024 11:33 Indication: Right ureteral stone Procedure: KUB Comparison: 07/25/2023 Findings: There is a right renal stone at the L2 level. Bowel gas pattern nonobstructive. Moderate co lonic fecal loading. Severe lower thoracic and lumbar spondylosis. No acute osseous abnormality. Impression: 1: Right nephrolithiasis. Reviewed, dictated and finalized at location A. Impression: 1: Right nephrolithiasis.
--- NOTE | ~2024-10-18 | CT_ITS ---
Non-contrast CT scan of the Abdomen and Pelvis Clinical indication: Right ureteral stone Technique: 2.5 mm axial scans were obtained through the abdomen and pelvis without intravenous or or al contrast. Dose reduction technique was used on this scan by utilizing automated exposure control a nd iterative reconstruction technique. The dose-length product (DLP) was 1010.84 mGy-cm. COMPARISON: 10/15/2022 Findings: Images through the lung bases reveal no abnormalities. 4 mm nonobstructing right renal stone present. No left renal stone present. Bilateral renal cysts are present. Probable punctate stones the distal right ureter, without hydronephrosis. No left ureteral stone or left hydronephrosis. The liver, spleen, pancreas, and adrenals appear normal. Tiny gallstones are present. There is no aor tic aneurysm. There is no evidence of bowel obstruction. Images through the pelvis were performed. There is no evidence of ascites or lymphadenopathy. Urinary bladder unremarkable. No pelvic mass seen. Impression: Probable punctate distal right ureteral stone without hydronephrosis. Additional 4 mm nonobstructing right renal stone. Bilateral renal cysts. Cholelithiasis. Reviewed, dictated and finalized at [facility]. Impression: Probable punctate distal right ureteral stone without hydronephrosis. Additional 4 mm nonobstructing right renal stone. Bilateral renal cysts. Cholelithiasis.
== END 2024-10-18 11:00 | disposition home or self-care (01) ==
PROVIDERS: PCP Physician Assistant
DX: N20.1 Calculus of ureter (principal); N20.0 Calculus of kidney; N28.1 Cyst of kidney, acquired; K80.20 Calculus of gallbladder without cholecystitis without obstruction
CPT/HCPCS: 74018; 74176

== ENCOUNTER 2024-10-18 11:03 | Outpatient (CLI) | payer MEDICARE, SELFPAY ==
--- NOTE | ~2024-10-18 | US_ITS ---
Renal-Bladder ultrasound Clinical History: Chronic kidney disease Technique: Real-time sonographic imaging of the kidneys and urinary bladder was performed. Findings: The right kidney measures 14.0 cm in length and the left kidney measures 16.6 cm. There is no hydronephrosis or renal calculus identified. Renal cortical echogenicity is increased. 8.6 cm righ t renal cyst present. Left renal cysts measure up to 7.2 cm in diameter. The urinary bladder is not clearly visualized. Impression: Echogenic kidneys suggest chronic medical renal disease. Bilateral renal cysts. Reviewed, dictated and finalized at location . Impression: Echogenic kidneys suggest chronic medical renal disease. Bilateral renal cysts.
== END 2024-10-18 11:04 | disposition home or self-care (01) ==
PROVIDERS: PCP Physician Assistant; Visit Provider Internal Medicine Nephrology
DX: E87.6 Hypokalemia (principal); N18.32 Chronic kidney disease, stage 3b; E55.9 Vitamin D deficiency, unspecified; I12.9 Hypertensive chronic kidney disease with stage 1 through stage 4 chronic kidney disease, or unspecified chronic kidney disease; N18.31 Chronic kidney disease, stage 3a
CPT/HCPCS: 76775

== ENCOUNTER 2024-11-19 13:13 | Emergency (ER) | payer MEDICARE, SELFPAY ==
--- NOTE | ~2024-11-19 | XR_ITS ---
EXAMINATION: XR chest 1V DATE: 11/19/2024 14:52 INDICATION: Hypertension TECHNIQUE: frontal view of the chest was obtained. COMPARISON: Chest radiograph dated 03/08/2024 FINDINGS: The lungs are clear with no focal airspace opacities, pulmonary edema, pleural effusion or pneumothor ax. The cardiomediastinal silhouette is normal. IMPRESSION: 1. No acute cardiopulmonary disease. Reviewed, dictated and finalized at location B.
--- NOTE | ~2024-11-19 | CT_ITS ---
CT brain wo con Ordering provider: Leroy Harden MD History: 79 years Male with . HTN, rosen . Comparison: None. Technique: CT of the head without contrast. Radiation reduction technique utilized. The dose-length product was 605.33 mGy-cm. FINDINGS: BRAIN PARENCHYMA AND CSF SPACES: Mild leukoaraiosis and diffuse cortical atrophy. Mild atheromatous d isease. No midline shift, mass effect or hemorrhage. The brain parenchyma and CSF spaces are otherwi se normal. Empty sella turcica. VISUALIZED PARANASAL SINUSES: Left maxillary sinus disease. Otherwise, Well aerated. MASTOIDS: Well aerated. BONES: The bones appear intact. Old fracture in the anterior wall of the left frontal sinus. SOFT TISSUES: Visualized nasopharynx is normal. Superficial soft tissues are normal. IMPRESSION: No acute intracranial findings. Reviewed, dictated and finalized at location A.
[2024-11-19 13:15] VITALS: BP 192/99; PULSE 61; RESP 18; TEMP 36.5; O2SAT 100
--- NOTE | 2024-11-19 14:21 | ECG_ITS ---
Test Date: 2024-11-19 14:54:47 Measurements Intervals [place] Rate: 57 P: 0 TX: 0 QRS: 201 QRSD: 100 T: 99 QT: 403 QTc: 394 Interpretive Statements SINUS RHYTHM WITH ATRIAL PREMATURE COMPLEX LIMB LEAD REVERSAL BASELINE ARTIFACT- I, III, AVR, AVL, AVF, V1-V2 BORDERLINE ECG No previous ECG available for comparison Electronically Signed On 11-19-2024 16:03:06 CDT by Jevon Lau D.O.
[2024-11-19 14:30] VITALS: BP 189/107; PULSE 59; RESP 18; TEMP 36.4; O2SAT 98
[2024-11-19 14:39] LABS: Hematocrit 36.3 % (42.0-52.0); Hemoglobin 10.7 g/dL (14.0-18.0); Mean Corpuscular HGB Conc 29.5 g/dl (32-36); Mean Corpuscular Hemoglobin 23.8 pg (26-34); Mean Corpuscular Volume 80.7 fl (80-100); Platelet Count Result 165 k/mm3 (150-375); Red Cell Distribution Width 14.6 % (11.5-14.5); White Blood Count 3.2 K/mm3 (4.5-10.0)
[2024-11-19 14:40] LABS: Basophils Percent Auto 0.3 % (0.2-1.2); Eosinophils Absolute Auto 0.1 K/mm3 (0-0.3); Eosinophils Percent Auto 2.5 % (0-4.4); Immature Granulocyte Absolute 0.02 K/mm3 (0.00-0.031); Immature Granulocyte Percent A 0.6 % (0-0.5); Lymphocytes Percent Auto 21.6 % (18.3-44.2); Mean Platelet Volume 10.5 fl (7.4-10.4); Monocytes Absolute Auto 0.4 K/mm3 (0.1-0.6)
--- NOTE | 2024-11-19 14:43 | ED.RECABL ---
HPI - Recheck/Abnormal Lab/Rx General Chief Complaint: Recheck/Abnormal Lab/Rx Stated Complaint: elevated BP Time Seen by Provider: 11/19/24 14:16 History of Present Illness HPI narrative: 79-year-old male with history of hypertension, CKD. Patient presents to the emergency department for evaluation of blood pressure readings without any symptoms. Patient supposed was called by his primary care provider and told to go the hospital for evaluation as his blood pressure has been high and ?in stroke range? according to the patient. Patient denies any symptoms aside from minor headache at this time. Denies any chest pain, shortness a breath, abdominal pain, leg swelling, fever, chills. He is on several medications for blood pressure and states that he has been compliant. Denies any trauma or injury. No vision changes, neurological complaints or history of stroke to his knowledge. Patient states he would not have come to the hospital if his doctor did not tell him to go today. Related Data Home Medications ?Medication ?Instructions ?Recorded ?Confirmed ?Last Taken ?Type acetaminophen 650 mg 1,300 mg PO BID PRN Pain 08/20/22 04/11/24 Unknown History tablet,extended release aspirin 81 mg capsule,delayed 81 mg PO DAILY 08/20/22 04/11/24 10/21/22 History release Allergies Allergy/AdvReac Type Severity Reaction Status Date / Time No Known Allergies Allergy Verified 10/16/24 10:44 Review of Systems Review of Systems: As reviewed above in HPI [facility] Past Medical History Medical History Stage 3a chronic kidney disease Stage 3b chronic kidney disease Acute kidney injury Cancer determined by prostate biopsy Elevated PSA Abnormal EKG Screening for prostate cancer Abnormal electrocardiogram [ECG] [EKG] BPH (benign prostatic hyperplasia) Tobacco abuse Hyperlipidemia due to dietary fat intake Benign essential HTN Chronic constipation Surgical History Surgical History History of prostate biopsy S/P TURP Family History Family History Other Diabetes mellitus Hypertension Social History Social History Social History: Smoking packs per day: 3 Smoking cigarettes per day: 60.0 Years smoked: 5 Smoking pack-years: 15.00 Smoking status: Former smoker Tobacco type: cigarettes Second hand tobacco smoke exposure: No Smoking end date: 12/04/76 Alcohol intake: never Substance use: never Substance use type: does not use Do You Feel Safe in your Home?: Yes Lack of Transportation: No Lack of Food: Never True Current Housing: I Have Housing Concerned About Future Housing: No Difficulty Paying Gas/Electric Bills: No Difficulty Paying for Meds: No Currently Unemployed: No Education: Decline to Answer Difficulty w/ Childcare or Family Care: No Living arrangements: alone Occupation/Education: occupation Gender identity (if verbalized by the patient): Male Sexual Orientation (if Verbalized by the Patient): Straight or Heterosexual Spiritual care concerns: No Exam Narrative: GENERAL: [Well-appearing, well-nourished, and in no acute distress.] HEAD: [Normocephalic, atraumatic.] EYES: [PERRLA and EOMI.] ENT: Nares clear, no rhinorrhea or epistaxis. Mucous membranes moist. NECK: Supple. CHEST: [Clear to auscultation. No respiratory distress.] HEART: [Regular rate and rhythm]. No murmur heard. [Normal peripheral pulses.] ABDOMEN: [Soft, nondistended], [nontender], [No rigidity or guarding] EXTREMITIES: Normal range of motion. [No edema.] SKIN: Warm, dry, no rash. NEURO: [No focal deficits]. Alert and oriented [x3.] No ataxia, vision changes, facial asymmetry, dysarthria or any neurological deficits on exam. PSYCH: [Normal mood and affect.] Course Vital Signs Vital signs: Vital Signs Temperature 36.5 C 11/19/24 13:15 Pulse Rate 61 11/19/24 13:15 Respiratory Rate 18 11/19/24 13:15 Blood Pressure 192/99 H 11/19/24 13:15 Pulse Oximetry 100 11/19/24 13:15 Oxygen Delivery Room Air 11/19/24 13:15 Temperature 36.4 C 11/19/24 14:30 Pulse Rate 59 L 11/19/24 14:30 Respiratory Rate 18 11/19/24 14:30 Blood Pressure 189/107 H 11/19/24 14:30 Pulse Oximetry 98 11/19/24 14:30 Oxygen Delivery Room Air 11/19/24 14:30 MDM - Recheck/Abnormal Lab/Rx MDM Narrative Medical decision making narrative: 79-year-old male presenting for elevated blood pressure readings. Only complaint is a minor headache but denies any other symptoms. States that he would not have come to the hospital if his doctor did not telling to go as he was worried about his elevated blood pressure readings. Patient has no complaints at this time otherwise in as an unremarkable and benign physical examination. I discussed with him about asymptomatic hypertension and signs and symptoms to watch L4. Given that he came to the hospital and does have elevated blood pressure readings with a mild headache we will evaluate for any signs of end-organ hypoperfusion or end-organ damage that would be concerning based on his blood pressure readings although suspicion presently is that he has chronic asymptomatic hypertension and can be safely discharged with outpatient follow-up and titration of his medications. No emergent need for blood pressure management here in the ER. CT of the head was ordered, chest x-ray, EKG and basic laboratory studies obtained. He was given a Tylenol and re-evaluated. His other vital signs remained stable. Laboratory studies showed no leukocytosis, anemia around his baseline, normal platelet count. Electrolytes are unremarkable. Normal renal function, GFR at baseline, normal LFTs. Normal glucose. CT of the head shows no acute intracranial findings. Chest x-ray shows no cardiopulmonary disease. EKG shows sinus bradycardia with rate of 57, QTC 394, QRS 100, no ST segment elevations, depressions or inversions. Patient re-evaluated and hemodynamically stable, no concerns at this time from workup or physical exam. He will have to follow up with his regular doctor regarding his asymptomatic hypertension for medication titration. Patient comfortable with the planning and given return precautions. Medical Records Attestation: I reviewed the patient's medical records. Lab Data Attestation: I reviewed the patient's lab results. 11/19/24 14:33 11/19/24 14:32 Labs: Lab Results 11/19/24 11/19/24 Range/Units 14:32 14:33 WBC 3.2 L (4.5-10.0) K/mm3 RBC 4.50 L (4.6-6.20) M/mm3 Hgb 10.7 L (14.0-18.0) g/dL Hct 36.3 L (42.0-52.0) % MCV 80.7 (80-100) fl MCH 23.8 L (26-34) pg MCHC 29.5 L (32-36) g/dl RDW 14.6 H (11.5-14.5) % Plt Count 165 (150-375) k/mm3 MPV 10.5 H (7.4-10.4) fl Immature Gran % (Auto) 0.6 H (0-0.5) % Neut % (Auto) 63.0 (45.5-73.1) % Lymph % (Auto) 21.6 (18.3-44.2) % [place] % (Auto) 12.0 H (2.6-8.5) % Eos % (Auto) 2.5 (0-4.4) % Baso % (Auto) 0.3 (0.2-1.2) % Lymph # (Auto) 0.70 L (0.9-3.2) K/mm3 [place] # (Auto) 0.4 (0.1-0.6) K/mm3 Eos # (Auto) 0.1 (0-0.3) K/mm3 Baso # (Auto) 0.0 (0.0-0.1) K/mm3 Abs Immat Gran (auto) 0.02 (0.00-0.031) K/mm3 Absolute Neuts (auto) 2.0 (1.3-6.7) K/mm3 Absolute Nucleated RBC 0.000 (0.0-0.012) K/mm3 Band Neutrophils % 0 (0-6) % Nucleated RBC % 0.0 (0.0-0.2) % Platelet Estimate Adequate (Adequate) Hypochromasia 1+ Schistocytes None seen Sodium 141 (137-145) mmol/L Potassium 4.2 (3.4-5.0) mmol/L Chloride 111 H (98-107) mmol/L Carbon Dioxide 25 (22-30) mmol/L Anion Gap 5 (4-12) mmol/L BUN 19 D (9-20) mg/dL Creatinine 1.21 (0.7-1.3) mg/dL Estim Creat Clear Calc 61 ml/min Estimated GFR 58 L (59 - ) Glucose 90 (65-110) mg/dL Calcium 10.8 H (8.4-10.2) mg/dL Magnesium 2.0 (1.6-2.3) mg/dL Total Bilirubin 0.3 (0.2-1.3) mg/dL AST 19 (17-59) U/L ALT 15 (6-50) U/L Alkaline Phosphatase 101 (38-126) U/L Total Protein 6.7 (6.3-8.2) g/dL Albumin 3.9 (3.5-5.1) g/dL Imaging Data Attestation: I personally reviewed and interpreted this imaging study as follows: My impression: Impressions Head CT 11/19/24 14:48 IMPRESSION: No acute intracranial findings. Chest X-Ray 11/19/24 14:53 IMPRESSION: 1. No acute cardiopulmonary disease. Discharge Plan Discharge Clinical Impression: Asymptomatic hypertension Patient Disposition: Home Condition: Stable Instructions: Antibiotic Form, Chronic Hypertension (DC) Additional Instructions: Your laboratory studies showed no urgent or emergent concerns today, your kidney function is normal, electrolytes are normal. No signs of any disease in the chest, CT of the head without any acute findings or concern. Follow-up with regular doctor regarding her blood pressure elevations and titration of your blood pressure medications on outpatient basis. No urgent or emergent need to lower your blood pressure numbers at this time and this should be done with the discretion of your PCP. Return to the ER if you experience stroke symptoms including difficulty walking, difficulty speaking, slurring of the words, loss of sensation or mobility in your extremities or symptoms such as chest pain, difficulty breathing, nauseousness or vomiting or any other concerns. Patient Language: Persian Prescriptions: No Action cetirizine [Zyrtec] 10 mg tablet 10 mg PO DAILY PRN (Reason: allergy symptoms) Qty: 90 2RF lisinopril 40 mg tablet 40 mg PO DAILY Qty: 90 1RF aspirin 81 mg Capsule,Delayed Release(Dr/Ec) 81 mg PO DAILY acetaminophen 650 mg Tablet Extended Release 1,300 mg PO BID PRN (Reason: Pain) (DME) True Metrix Level 1 Solution See Rx Instructions .Route Qty: 1 0RF Rx Instructions: As directed (DME) lancets [TRUEplus Lancets] 33 gauge misc See Rx Instructions .ROUTE .COMPLEX Qty: 300 3RF Dose Instruction: USE DIRECTED FOR MONITORING OF BLOOD SUGAR Rx Instructions: USE DIRECTED FOR MONITORING OF BLOOD SUGAR verapamil 240 mg tablet extended release See Rx Instructions .ROUTE .COMPLEX Qty: 90 3RF Dose Instruction: TAKE 1 TABLET EVERY MORNING FOR BLOOD PRESSURE Rx Instructions: TAKE 1 TABLET EVERY MORNING FOR BLOOD PRESSURE atorvastatin 20 mg tablet See Rx Instructions .ROUTE .COMPLEX Qty: 90 1RF Dose Instruction: TAKE 1 TABLET EVERY DAY TO LOWER CHOLESTEROL Rx Instructions: TAKE 1 TABLET EVERY DAY TO LOWER CHOLESTEROL gabapentin 100 mg capsule 100 mg PO QHS Qty: 90 0RF hydralazine 25 mg tablet 25 mg PO QID Qty: 120 0RF Rx Instructions: take 1 tablet 4 times a day (one with each meal and then at bedtime) Follow-up/Referrals: UNKNOWN,DOCTOR [Primary Care Provider] - Time of Disposition: 15:36
[2024-11-19 14:52] LABS: Alanine Aminotransferase 15 U/L (6-50); Albumin Level 3.9 g/dL (3.5-5.1); Alkaline Phosphatase 101 U/L (38-126); Anion Gap 5 mmol/L (4-12); Aspartate Amino Transferase 19 U/L (17-59); Bilirubin,Total 0.3 mg/dL (0.2-1.3); Blood Urea Nitrogen 19 mg/dL (9-20); Calcium 10.8 mg/dL (8.4-10.2); Carbon Dioxide 25 mmol/L (22-30); Chloride 111 mmol/L (98-107); Estimated CRCL calculation 61 ml/min; Estimated Glomerular Filt Rate 58; Glucose 90 mg/dL (65-110); Potassium 4.2 mmol/L (3.4-5.0); Sodium 141 mmol/L (137-145); Total Protein 6.7 g/dL (6.3-8.2)
[2024-11-19 15:02] LABS: Band Neutrophils Percent 0 % (0-6); Platelet Estimate Adequate (Adequate); Schistocytes None Seen
[2024-11-19 15:03] LABS: Hypochromasia 1+
[2024-11-19 15:29] VITALS: BP 185/106; PULSE 62; RESP 15; O2SAT 100
[2024-11-19] MEDS: ACETAMINOPHEN 500 MG TABLET 1000 MG PO (15:34)
--- OUTSIDE RECORDS SUMMARY | 2024-11-19 15:34 | XMS_ITS | Clinical Summary ---
Author Organization [facility] Address [facility] [place] [address] Care Team Providers Care Special Events Manager Name Role Phone Stephen Roach MD Primary Care Provider [phone] Arturo Fitzpatrick MD Unavailable [phone] Allergies No known active allergies Medications atorvastatin 20 MG tablet 20 mg daily. 09/01/2018 Active verapamil ER 360 MG CAPSULE SR 24 HR 24 hr capsule Take 1 capsule by mouth daily. 03/28/[address] 375 MG Tab EC tablet Take 1 tablet by mouth 2 (two) times a day. 03/28/2018 Active oxyCODONE-aceta minophen (PERCOCET) 5-325 MG tabletIndicatio ns:S/P total knee replacement, right Take 1-2 tablets by mouth every 6 (six) hours as needed (Severe Pain). 40 tablet 10/04/2018 Active lisinopril 5 MG tablet Take 1 tablet (5 mg total) by mouth daily. 30 tablet 10/04/2018 Active Active Problems Problem Noted Date Diagnosed Date Pain due to total right knee replacement, initia l encounter 11/13/2019 Hypokalemia 10/03/2018 Hypertensive urgency 10/03/2018 S/P total knee replacement, right 10/02/2018 S/P total knee arthroplasty, right 10/02/2018 Primary osteoarthritis of right knee 09/19/2018 Family History Medical History Relation Comments Hypertension Daughter 1 None Father None Mother Hypertension Sister 1 Relation Status Comments Brother 1 Alive Brother 2 Alive Daughter 1 Alive Daughter 2 Alive Father Mother Sister 1 Alive Sister 2 Alive Son 1 Alive Son 2 Alive Social History Tobacco Use Types Packs/Day Years Used Date Smoking Tobacco: Former Cigarettes Q uit: 1975 Smokeless Tobacco: Never Alcohol Use Standard Drinks/Week Comments No 0 (1 standard drink = 0.6 oz pur e alcohol) AUDIT-C Answer Date Recorded Frequency of Alcohol Consumption Never 09/20/2018 Average Number of Drinks Not on file 019 Frequency of Binge Drinking Not on file 09/04 Sex and Gender Information Value Date Recorded Sex Assigned at Not on file 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 Gender Identity Not on file Sexual Orientation Not on file Last Filed Vital Signs Vital Sign Reading Time Taken Comments Blood Pressure 134/84 11/13/2019 9:02 AM CDT Pulse 64 11/13/2019 9:02 AM CDT Temperature 37 C (98.6 F) 11/13/2019 9:02 AM CDT Respiratory Rate 24 10/04/2018 11:1 8 AM CDT Oxygen Saturation 100% 10/04/2018 11: 18 AM CDT Inhaled Oxygen Concentration - - Weight 119.7 kg (263 lb 12.8 oz) 11/13/2019 9:02 AM CDT Height 180.3 cm (5' 11) 11/13/2019 9:02 AM CDT Body Mass Index 36.79 11/13/2019 9:02 AM CDT Plan of Treatment Health Maintenance Due Date Last Done Comments Hepatitis C 1963 DTaP, Tdap and Td Vaccines ( 1 - Tdap) 1964 Pneumococcal Vaccine: 50+ Ye ars (1 of 1 - PCV) 1995 Zoster Vaccines (1 of 2) 1995 Annual Medicare Wellness Visit 2010 RSV Immunization or 60+ Years (1 - 1-dose 75+ series) 2020 COVID-19 Vaccine (2023-2 5 season) 2024 Meningococcal B Vaccine Aged Out No l onger eligible based on patient's age to complete this topic Meningococcal Vaccine Aged Out No silvestre rene eligible based on patient's age to complete this topic RSV Immunizations Under 20 Months Aged Out No longer eligible based on patient's age to complete this topic Medical Devices Implanted Type Area Industrial Staff Nurse Device Identifier Shelf Expiration Date Model / Serial / Lot Cement Bone Tobramycin Simplex - [id number] Implanted:Qty : 1 on 10/02/2018 by Arturo Fitzpatrick MD at [facility] Cement Implant Right: Knee [employer] - DIV PAT JAME 12/04/2019 6197-9-0 01 / / [id number] Cement Full Dose - [id number] Implanted:Qty : 1 on 10/02/2018 by Arturo Fitzpatrick MD at [facility] Cement Implant Right: Knee [employer] - DIV PAT [employer]AME 10/03/2020 6191-1-0 10 / / [id number] Ibalance Tka Femoral Ps Cemented Implanted:Qty : 1 on 10/02/2018 by Arturo Fitzpatrick MD at [facility] Knee Components Right: Femur [employer] 06/05/2022 AR-516-8 R / / [id number] Ibalance Tka Tibial Tray Implanted:Qty : 1 on 10/02/2018 by Arturo Fitzpatrick MD at [facility] Knee Components Right: Tibia [employer] 05/05/2021 AR-513-T 9 / / [id number] Ibalance Patella Implant Dome Implanted:Qty : 1 on 10/02/2018 by Arturo Fitzpatrick MD at [facility] Knee Components Right: Patella [employer] 12/03/2021 AR-524-P SE0 / / [id number] Ibalance Tka Tibial Bearing Implant Implanted:Qty : 1 on 10/02/2018 by Arturo Fitzpatrick MD at [facility] Knee Components Right: Tibia [employer] 07/06/2022 AR-523-B 914 / / [id number] Ibalance Tka Stem Extension, Cemented Implanted:Qty : 1 on 10/02/2018 by Arturo Fitzpatrick MD at [facility] Knee Components Right: Tibia [employer] 11/03/2020 AR-513-1 4100 / / [id number] Left Knee Insurance Advance Directives * Full Code (Latest Code Status on File) Date Activated Date Inactivated Comments 10/02/2018 2:24 PM 10/04/2018 3:47 PM Care Teams Special Events Manager Relationship Specialty Start Date End Date Stephen Roach MD PCP - General INTERNAL MEDICINE 04/13/18 Arturo Fitzpatrick MD Consulting Physician ORTHOPAEDIC SURGERY 09/20/18
[2024-11-19 15:52] VITALS: BP 188/106; PULSE 59; RESP 17; TEMP 36.4; O2SAT 100
== END 2024-11-19 15:54 | disposition home or self-care (01) ==
PROVIDERS: Emergency Provider Student in an Organized Health Care Education/Training Program
DX: I12.9 Hypertensive chronic kidney disease with stage 1 through stage 4 chronic kidney disease, or unspecified chronic kidney disease (principal); N18.30 Chronic kidney disease, stage 3 unspecified; N40.0 Benign prostatic hyperplasia without lower urinary tract symptoms; E78.5 Hyperlipidemia, unspecified; Z90.79 Acquired absence of other genital organ(s); Z87.891 Personal history of nicotine dependence; Z79.82 Long term (current) use of aspirin; Z79.899 Other long term (current) drug therapy; I49.1 Atrial premature depolarization
CPT/HCPCS: 36415; 70450; 71045; 80053; 83735; 85025; 93005; 99284; A9270

== ENCOUNTER 2025-01-24 09:28 | Outpatient (CLI) | payer MEDICARE, SELFPAY ==
--- NOTE | ~2025-01-24 | CT_ITS ---
CLINICAL INDICATION: Right ureteral stone COMPARISON: 10/18/2024. TECHNIQUE: Multiple contiguous axial images of the abdomen and pelvis were performed without the administration of intravenous contrast The dose-length product (DLP) was 1029.41 mGy-cm. Automated exposure control and iterative reconstruction technique were employed. FINDINGS/OBSERVATIONS: Visualized lower thorax: The bilateral lung bases are clear. The heart is within the upper limits of normal for size, without pericardial effusion. Liver: The liver demonstrates homogeneous attenuation and is not enlarged. Gallbladder and biliary system: The gallbladder is only minimally distended, contains layering small stones and is otherwise unremarkable. Pancreas: Limited evaluation of the pancreas secondary to the lack of intravenous contrast. Spleen: The spleen demonstrates homogeneous attenuation and is not enlarged. Kidneys: 6 mm nonobstructing calculus within the lower pole of the right kidney. Redemonstration of a 3 mm calculus within the distal right ureter with mild right-sided hydroureteronephrosis, unchanged from prior. Multiple well-circumscribed foci of fluid attenuation detected bilaterally, also unchanged from prior representing simple cysts as seen on prior ultrasound dated 10/18/2024. The largest on the right measures up to 9 cm in cranial to caudal dimension. The largest on the left measures 5 cm in cranial to caudal dimension. The remainder of the bilateral kidneys are otherwise unremarkable, without additional renal calculi. Adrenal glands: Unremarkable. Gastrointestinal tract: Fecal stasis within the colon. Appendix: The air-filled appendix is of normal caliber (axial series, images 58 through 62). Vasculature: Calcified atherosclerotic disease within the abdominal aorta, without aneurysmal dilatation. Lymph nodes: Limited evaluation without intravenous contrast. Pelvic structures: The bladder is only minimally distended, demonstrating thickened russell and surrounding inflammatory change, unchanged from prior. The prostate gland is not enlarged. Body wall and musculoskeletal: Age-appropriate degenerative disease within the lower thoracic and lumbosacral spines. IMPRESSION: Redemonstration of mild right-sided hydroureteronephrosis secondary to a 3 mm calculus in the distal right. Redemonstration of a 6 mm nonobstructing calculus within the lower pole of the right kidney. Stable simple cysts within the bilateral kidneys, unchanged from prior. Cholelithiasis. Reviewed, dictated and finalized at location A. IMPRESSION: Redemonstration of mild right-sided hydroureteronephrosis secondary to a 3 mm c alculus in the distal right. Redemonstration of a 6 mm nonobstructing calculus within the lower pole of the right kidney. Stable simple cysts within the bilateral kidneys, unchanged from prior. Cholelithiasis.
--- NOTE | ~2025-01-24 | XR_ITS ---
XR abdomen/kub 1V 01/24/2025 10:16 Indication: Right ureteral stone Procedure: KUB Comparison: Comparison to multiple prior studies sequentially, with oldest reviewed study dated 09/22/2022. Findings: There is a right renal stone. Bowel gas pattern nonobstructive. Moderate colonic fecal loading. There are linear likely surgical devices overlying the pelvis. Clinically correlate. Severe lower thoracic and lumbar spondylosis. Impression: 1: Stable right nephrolithiasis. Reviewed, dictated and finalized at location O. Impression: 1: Stable right nephrolithiasis.
== END 2025-01-24 09:29 | disposition home or self-care (01) ==
LOC: MICIMG 09:29
PROVIDERS: PCP Family Medicine; Visit Provider Nurse Practitioner
DX: N13.2 Hydronephrosis with renal and ureteral calculous obstruction (principal); K80.20 Calculus of gallbladder without cholecystitis without obstruction; N28.1 Cyst of kidney, acquired
CPT/HCPCS: 74018; 74176

== ENCOUNTER 2025-04-25 13:11 | Outpatient (CLI) | payer MEDICARE, SELFPAY ==
--- NOTE | ~2025-04-25 | MR_ITS ---
EXAM/PROCEDURE: MR abdomen wo/w con HISTORY: K86.89 - Other specified diseases of pancreas COMPARISON: CT exam from January 24, 2025 also, CT exam from 2022 and PET/CT from July 19, 2022. TECHNIQUE: Pre and postcontrast enhanced MRI of the abdomen performed. FINDINGS/DISCUSSION: In the distal pancreatic body region image 15 series 4 is a 2.8 x 2.8 cm x3.4 cm mass which enhances as seen on image 515 series 13. The lesion is fairly well marginated with no clearly infiltrative changes in the adjacent soft tissues. No bulky lymphadenopathy seen. The mass is hyperattenuating on CT exams and not markedly changed in size since 2022. Compare image 64 series 3 on the July 30, 2022 exam with image 28 series 2 of the October 18, 2024 exam. No evidence of radiotracer uptake on the PET scan in this area. On coronal image 67 of October 15, 2022 the mass measures 3.04 cm in the cephalocaudal dimension, compared to 3.4 cm on the January 24, 2025 CT. Numerous renal cysts which appear predominantly simple are unchanged compared to the January 24 exam. The remainder the exam is unremarkable. IMPRESSION:A 3.4 cm enhancing pancreatic distal body mass with relatively slow growth pattern and smooth margins may represent benign neoplasm versus low-grade malignant mass. If patient is managed nonoperatively, follow-up MRI in 6 months is recommended or sooner if clinically appropriate. Reviewed, dictated and finalized at location A. EY DIRECTOR IMPRESSION:A 3.4 cm enhancing pancreatic distal body mass with relatively slow growth pattern and smooth margins may represent benign neoplasm versus low-grad e malignant mass. If patient is managed nonoperatively, follow-up MRI in 6 doyle hs is recommended or sooner if clinically appropriate.
--- OUTSIDE RECORDS SUMMARY | 2025-04-25 15:58 | XMS_ITS | Clinical Summary ---
Author Organization [facility] Address [address] [place] [address] Care Team Providers Care District Scout Executive Name Role Phone Nikolas Negron MD Primary Care Provider [phone] Source Comments [facility],non-owned Affiliates and Associated Physician Practices is amultiple site organization consisting of ambulatory clinics and hospital sitesin [place], [place], [place] and [place]. This disclosure is being madepursuant to the Care Everywhere program and may not contain all information available regarding this patient. Last updated 18.[facility] Allergies No known active allergies Medications * Be aware that medications may not be up to date on this document. Alwaysverify current medications with the patient. Verapamil HCl CR 360 MG Take 1 capsule by mouth 03/28/2018 Active atorvastatin (LIPITOR) 20 MG tablet 20 mg 09/01/2018 Active lisinopril (PRINIVIL;ZESTR IL) 5 MG tablet Take 5 mg by mouth 10/04/2018 Active aspirin (ASPIRIN 81) 81 MG chew tablet Take 81 mg by mouth once daily Active hydroCHLOROthia zide (MICROZIDE) 12.5 MG capsule Take 12.5 mg by mouth once daily Active Social History Tobacco Use Types Packs/Day Years Used Date Smoking Tobacco: Former Smokeless Tobacco: Never Alcohol Use Standard Drinks/Week Comments Not Currently 0 (1 standard drink = 0.6 oz pur e alcohol) AUDIT-C Answer Date Recorded Frequency of Alcohol Consumption Never 05/01/2019 Average Number of Drinks Not on file 019 Frequency of Binge Drinking Not on file 04/07 Sex and Gender Information Value Date Recorded Sex Assigned at Not on file Legal Sex Male 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 Gender Identity Not on file Sexual Orientation Not on file Last Filed Vital Signs Vital Sign Reading Time Taken Comments Blood Pressure 156/91 05/11/2019 1:21 PM COMPLIANCE MGR Pulse 66 05/11/2019 1:21 PM COMPLIANCE MGR Temperature 36.7 C (98 F) 05/11/2019 1:21 PM COMPLIANCE MGR Respiratory Rate - - Oxygen Saturation 97% 05/11/2019 1:21 PM COMPLIANCE MGR Inhaled Oxygen Concentration - - Weight 117 kg (258 lb) 05/11/2019 1:21 PM COMPLIANCE MGR Height 172.7 cm (5' 8) 05/11/2019 1:21 PM COMPLIANCE MGR Body Mass Index 39.23 05/11/2019 1:21 PM COMPLIANCE MGR Plan of Treatment Health Maintenance Due Date Last Done Comments DTAP/TDAP/TD VACCINES (1 - Tdap) 1964 PNEUMOCOCCAL VACCINE 50+ (1 of 1 - PCV) 1995 ZOSTER VACCINE (1 of 2) 1995 Respiratory Syncytial Virus (RSV) Vaccine Pt: or over 60 yrs (1 - 1-dose 75+ series) 2020 DEPRESSION SCREENING 06/06/2024 COVID-19 VACCINE (1 - 2024-2 6 season) 2025 INFLUENZA VACCINE (#1) 2025 HEPATITIS B VACCINE Aged Out No longe r eligible based on patient's age to complete this topic HIB VACCINE Aged Out No longer eligi ble based on patient's age to complete this topic HPV VACCINE Aged Out No longer eligi ble based on patient's age to complete this topic MENINGOCOCCAL (Group B) VACC INE SHARED DECISION-MAKING Aged Out No longer eligibl e based on patient's age to complete this topic MENINGOCOCCAL GROUPS A/C/Y/W VACCINE Aged Out No longer eligible b ased on patient's age to complete this topic Insurance HUMANA HUMANA Care Teams District Scout Executive Relationship Specialty Start Date End Date Nikolas Negron MD [address] [place] [phone] PCP - General 04/18/19
== END 2025-04-25 13:12 | disposition home or self-care (01) ==
PROVIDERS: PCP Family Medicine; Visit Provider Family Medicine
DX: K86.89 Other specified diseases of pancreas (principal)
CPT/HCPCS: 74183; A9577